=== PATIENT | male | born 1965 | race Caucasian/White ===

== ENCOUNTER 2017-01-15 05:50 | Inpatient (IN) | payer MEDICAID ==
[~2017-01-15] VITALS: Ht 195.6 cm; Wt 111.1 kg
[2017-01-15 07:03] LABS: CLARITY URINE CLEAR (CLEAR); COLOR URINE YELLOW (YELLOW); GLUCOSE URINE NEGATIVE (NEGATIVE); KETONES URINE NEGATIVE (NEGATIVE); LEUKOCYTE ESTERASE URINE NEGATIVE (NEGATIVE); NITRITE URINE NEGATIVE (NEGATIVE); OCCULT BLOOD URINE NEGATIVE (NEGATIVE); PH URINE 5.5 (4.5-8.0); PROTEIN URINE NEGATIVE (NEGATIVE); SPECIFIC GRAVITY URINE 1.019 (1.005-1.030); UROBILINOGEN URINE 0.2 E.U./dL (0.2-1.0)
[2017-01-15 07:03] LABS: CHLORIDE 106 mEq/L (98-107)
[2017-01-15 07:08] LABS: PARTIAL THROMBOPLASTIN TIME 26.1 sec (23.4-31.0)
[2017-01-15 07:12] LABS: CARBON DIOXIDE 27 mEq/L (21-32)
[2017-01-15 07:32] LABS: BASOPHILS % 0.5 % (0.0-2.0); EOSINOPHILS % 1.7 % (0.0-5.0); LYMPHOCYTES % 23.2 % (20.0-50.0); MEAN CORPUSCULAR HEMOGLOBIN 31.9 pg (28.0-32.0); MEAN CORPUSCULAR VOLUME 89.7 fL (80.0-94.0); MEAN PLATELET VOLUME 7.1 fl (7.4-10.4); MONOCYTES % 8.5 % (2.0-8.0); NEUTROPHILS % 66.1 % (40.0-76.0); PLATELET 219 x1000/uL (130-400); RED BLOOD CELL COUNT 4.68 mill/uL (4.7-6.1); RED CELL DISTRIBUTION WIDTH 13.2 % (11.6-14.6)
[2017-01-15] MEDS ORDERED: METHYLENE BLUE 50 MG/10 ML AMP IV ONE (08:04)
[2017-01-15] MEDS ORDERED: GENTAMICIN SULF 40MG/ML 2ML VIAL ONE (08:13)
[2017-01-15] MEDS ORDERED: EPINEPHRINE 1:1000 1 MG/ML AMP ONE (08:13)
[2017-01-15] MEDS ORDERED: NORMAL SALINE 0.9% 10 ML SYR ONE (08:14)
[2017-01-15] MEDS ORDERED: BUPIVACAINE/EPINEPHRINE/PF 0.25%/0.0005 30ML ONE (08:14)
[2017-01-15] MEDS ORDERED: BACITRACIN 50,000 UNITS/VIAL ONE (08:14)
[2017-01-15] MEDS ORDERED: LACTATED RINGERS 1,000 ML IV SCH (08:15)
[2017-01-15] MEDS ORDERED: MORPHINE SULFATE/PF 1MG/ML 10ML AMP ONE (08:15)
[2017-01-15] MEDS ORDERED: TRANEXAMIC ACID 1,000 MG in SODIUM CHLORIDE 0.9% 100 ML IV NR ×2 (08:30→11:30)
[2017-01-15] MEDS ORDERED: HYDR25TA PO (08:40)
[2017-01-15] MEDS ORDERED: ASPI-1159 PO (08:40)
[2017-01-15] MEDS ORDERED: AMLO10TA80 PO (08:40)
[2017-01-15] MEDS ORDERED: ATOR10TA69 PO (08:40)
[2017-01-15] MEDS ORDERED: IBUP-2030 PO (08:40)
[2017-01-15] MEDS ORDERED: LIDOCAINE HCL 1% 20ML VIAL (Pyxis) INJ ONE (08:55)
[2017-01-15] MEDS ORDERED: PROPOFOL 200MG/20ML VIAL IV ONE (08:55)
[2017-01-15] MEDS ORDERED: FENTANYL CITRATE/PF 50MCG/ML 2ML VIAL ONE (08:55)
[2017-01-15] MEDS ORDERED: CEFAZOLIN SODIUM 1000MG/VIAL ONE (08:55)
[2017-01-15] MEDS ORDERED: MEPERIDINE HCL/PF 25MG/ML CPJ IV PRN (09:15)
[2017-01-15] MEDS ORDERED: HYDROMORPHONE HCL/PF 2MG/ML CPJ IV PRN (09:15)
[2017-01-15] MEDS ORDERED: LABETALOL HCL 20MG/4ML CARPUJECT IV PRN (09:15)
[2017-01-15] MEDS ORDERED: ONDANSETRON HCL 4MG/2ML VIAL IV PRN ×2 (09:15→20:00)
[2017-01-15] MEDS ORDERED: HYDROMORPHONE HCL/PF 2MG/ML (OR) ONE ×2 (09:15→12:58)
[2017-01-15] MEDS ORDERED: EPHEDRINE SULFATE 50MG/ML VIAL ONE (09:19)
[2017-01-15] MEDS ORDERED: METOCLOPRAMIDE HCL 10MG/2ML VIAL ONE (10:07)
[2017-01-15] MEDS ORDERED: KETOROLAC 30MG/ML VIAL ONE (11:53)
[2017-01-15] MEDS ORDERED: DIPHENHYDRAMINE INJ IV PRN (13:30)
[2017-01-15] MEDS ORDERED: HYDROMORPHONE PCA 10MG/50ML IV PRN (13:30)
[2017-01-15] MEDS ORDERED: NALOXONE INJ IV PRN (13:30)
[2017-01-15] MEDS ORDERED: ONDANSETRON INJ IV PRN (13:30)
[2017-01-15 16:30] VITALS: BP 134/79
[2017-01-15 17:15] VITALS: BP 138/86
[2017-01-15 20:00] VITALS: BP 139/87
[2017-01-15] MEDS ORDERED: MAGNESIUM HYDROXIDE 400MG/5ML 30ML UDC PO PRN (20:00)
[2017-01-15] MEDS ORDERED: ZOLPIDEM TARTRATE 5MG TABLET PO PRN (20:30)
[2017-01-15] MEDS: CEFAZOLIN 2,000 MG in DEXT 5% WATER 100 ML IV SCH (20:31)
[2017-01-16] VITALS: BP 118/77
[2017-01-16 04:00] VITALS: BP 126/81
[2017-01-16] MEDS: CEFAZOLIN 2,000 MG in DEXT 5% WATER 100 ML IV SCH (04:33)
[2017-01-16 06:53] LABS: CARBON DIOXIDE 25 mEq/L (21-32); CHLORIDE 105 mEq/L (98-107)
[2017-01-16 07:04] LABS: BASOPHILS % 0.1 % (0.0-2.0); HEMATOCRIT. 30.3 % (42.0-52.0); HEMOGLOBIN. 10.7 g/dL (14.0-18.0); LYMPHOCYTES % 7.7 % (20.0-50.0); MEAN CORPUSCULAR HEMOGLOBIN 31.6 pg (28.0-32.0); MONOCYTES % 11.3 % (2.0-8.0); NEUTROPHILS % 80.9 % (40.0-76.0); PLATELET 169 x1000/uL (130-400); RED BLOOD CELL COUNT 3.37 mill/uL (4.7-6.1)
[2017-01-16 08:00] VITALS: BP 137/82
[2017-01-16] MEDS: DOCUSATE SODIUM 100MG CAPSULE PO SCH ×2 (08:55→17:08)
[2017-01-16] MEDS: FERROUS SULFATE 325MG TABLET PO SCH ×3 (08:55→17:08)
[2017-01-16] MEDS: ENOXAPARIN 30MG/0.3ML SYR SUBCUT SCH ×2 (08:55→21:37)
[2017-01-16] MEDS: HYDROCODONE/ACETAMINOPHEN 10/325MG TABLET PO PRN ×4 (08:56→21:37)
[2017-01-16 12:00] VITALS: BP 147/80
[2017-01-16 16:00] VITALS: BP_SYST 122; BP_SYST 151; BP_DIAS 75; BP_DIAS 89
[2017-01-16 20:00] VITALS: BP 127/73
[2017-01-16] MEDS: ACETAMINOPHEN 325MG TABLET PO PRN (23:26)
[2017-01-17] VITALS: BP 125/70
[2017-01-17 04:00] VITALS: BP 129/80
[2017-01-17] MEDS: ACETAMINOPHEN 325MG TABLET PO PRN (07:17)
[2017-01-17] MEDS: ENOXAPARIN 30MG/0.3ML SYR SUBCUT SCH (08:03)
[2017-01-17] MEDS: DOCUSATE SODIUM 100MG CAPSULE PO SCH ×2 (08:03→17:39)
[2017-01-17] MEDS: FERROUS SULFATE 325MG TABLET PO SCH ×3 (08:03→17:39)
[2017-01-17] MEDS: HYDROCODONE/ACETAMINOPHEN 10/325MG TABLET PO PRN ×2 (12:39→17:39)
[2017-01-17 13:38] LABS: BASOPHILS % 0.3 % (0.0-2.0); EOSINOPHILS % 0.2 % (0.0-5.0); HEMATOCRIT. 27.7 % (42.0-52.0); HEMOGLOBIN. 9.7 g/dL (14.0-18.0); MEAN CORPUSCULAR HEMOGLOBIN 31.4 pg (28.0-32.0); MEAN CORPUSCULAR VOLUME 90.1 fL (80.0-94.0); MEAN PLATELET VOLUME 6.8 fl (7.4-10.4); MONOCYTES % 11.6 % (2.0-8.0); NEUTROPHILS % 77.9 % (40.0-76.0); PLATELET 178 x1000/uL (130-400); RED BLOOD CELL COUNT 3.07 mill/uL (4.7-6.1); RED CELL DISTRIBUTION WIDTH 13.1 % (11.6-14.6)
[2017-01-17 13:59] LABS: CARBON DIOXIDE 28 mEq/L (21-32); CHLORIDE 100 mEq/L (98-107)
[2017-01-17] MEDS ORDERED: POTASSIUM CHLORIDE 20MEQ TABLET SR PO NR (15:30)
[2017-01-17 18:03] VITALS: BP 130/83
== END 2017-01-17 19:02 | disposition home health service (06) | DRG 302 ==
LOC: OR 05:50 → 6EST 05:51
PROVIDERS: ADMIT Internal Medicine; ATTEND Internal Medicine
PROC: 0SRC0J9 Replacement of Right Knee Joint with Synthetic Substitute, Cemented, Open Approach (ICD-10-PCS; principal; 2017-01-15 09:30)
DX: M17.11 Unilateral primary osteoarthritis, right knee (principal); E44.0 Moderate protein-calorie malnutrition; D62 Acute posthemorrhagic anemia; I10 Essential (primary) hypertension; E78.5 Hyperlipidemia, unspecified; E87.6 Hypokalemia; G89.29 Other chronic pain; M17.12 Unilateral primary osteoarthritis, left knee; M65.9 Synovitis and tenosynovitis, unspecified; F32.9 Major depressive disorder, single episode, unspecified
CPT/HCPCS: 36415; 73560; 80048; 80053; 81003; 85025; 85610; 85730; 86850; 86900; 86920; 88305; 88311; 93970; 97116; 97162; 97166; 97535; A4216; C1776; J0171; J0690; J1170; J1580; J1650; J1885; J2274; J2405; J2704; J2765; J3010; J3490; J7030; J7050; J7060; J7120; L1830; Q9968

== ENCOUNTER 2018-12-01 11:31 | Emergency (ER) | payer MEDICAID ==
[~2018-12-01] VITALS: Ht 180.3 cm; Wt 121.0 kg
[~2018-12-01 11:31] MED LIST: AMLO10TA80 PO; ASPI-1393 PO; ATOR10TA69 PO; HYDR25TA PO; IBUP-2030 PO; MULT-1116 PO; OMEG-118 PO
[2018-12-01 13:10] VITALS: BP 130/71
== END 2018-12-01 13:27 | disposition home or self-care (01) ==
LOC: ER 13:27
DX: G89.18 Other acute postprocedural pain (principal); M79.662 Pain in left lower leg
CPT/HCPCS: 73590; 99283

== ENCOUNTER 2018-12-08 10:52 | Emergency (ER) | payer MEDICAID ==
[~2018-12-08] VITALS: Ht 182.9 cm; Wt 120.0 kg
[2018-12-08 16:26] VITALS: BP 125/72
== END 2018-12-08 16:29 | disposition home or self-care (01) ==
LOC: ER 10:52
DX: T84.117A Breakdown (mechanical) of internal fixation device of bone of left lower leg, initial encounter (principal); M96.672 Fracture of tibia or fibula following insertion of orthopedic implant, joint prosthesis, or bone plate, left leg; I10 Essential (primary) hypertension; Y93.89 Activity, other specified; Y79.3 Surgical instruments, materials and orthopedic devices (including sutures) associated with adverse incidents; Y92.89 Other specified places as the place of occurrence of the external cause
CPT/HCPCS: 29505; 73700; 99284

== ENCOUNTER 2019-02-24 09:29 | Inpatient (IN) | payer MEDICAID ==
[~2019-02-24] VITALS: Ht 182.9 cm; Wt 125.6 kg
[2019-02-24] MEDS ORDERED: LACTATED RINGERS 1,000 ML IV SCH (09:30)
[2019-02-24 14:10] LABS: CLARITY URINE CLEAR (CLEAR); COLOR URINE YELLOW (YELLOW); KETONES URINE NEGATIVE (NEGATIVE); LEUKOCYTE ESTERASE URINE NEGATIVE (NEGATIVE); NITRITE URINE NEGATIVE (NEGATIVE); OCCULT BLOOD URINE NEGATIVE (NEGATIVE); PROTEIN URINE NEGATIVE (NEGATIVE); SPECIFIC GRAVITY URINE 1.016 (1.005-1.030); UROBILINOGEN URINE 0.2 E.U./dL (0.2-1.0)
[2019-02-24] MEDS ORDERED: BUPIVACAINE HCL/EPINEPHRINE 0.25%/0.0005 50ML ONE ×2 (15:56→17:50)
[2019-02-24] MEDS ORDERED: MORPHINE SULFATE/PF 1MG/ML 10ML AMP ONE (15:56)
[2019-02-24] MEDS ORDERED: VANCOMYCIN HCL 1 GM/VIAL ONE (15:57)
[2019-02-24] MEDS ORDERED: EPINEPHRINE 1:1000 1 MG/ML AMP ONE (15:57)
[2019-02-24] MEDS ORDERED: GENTAMICIN SULF 40MG/ML 2ML VIAL ONE (15:58)
[2019-02-24] MEDS ORDERED: BACITRACIN 50,000 UNITS/VIAL ONE (15:58)
[2019-02-24] MEDS ORDERED: BUPIVACAINE HCL/DEXTROSE/PF 0.75% 2ML AMP INJ ONE (16:01)
[2019-02-24] MEDS ORDERED: ROPIVACAINE HCL 10MG/ML 20 ML VIAL EPI ONE (16:02)
[2019-02-24] MEDS ORDERED: CEFAZOLIN SODIUM 1000MG/VIAL ONE (16:12)
[2019-02-24] MEDS ORDERED: FENTANYL CITRATE/PF 50MCG/ML 2ML VIAL ONE ×3 (16:12→19:32)
[2019-02-24] MEDS ORDERED: NEOSTIGMINE METHYLSULFATE 1MG/ML 10 ML VIAL ONE (16:12)
[2019-02-24] MEDS ORDERED: PROPOFOL 200MG/20ML VIAL IV ONE (16:12)
[2019-02-24] MEDS ORDERED: GLYCOPYRROLATE 0.2 MG/ML 2ML VIAL ONE (16:12)
[2019-02-24] MEDS ORDERED: MIDAZOLAM HCL 2 MG/2 ML VIAL ONE (16:12)
[2019-02-24] MEDS ORDERED: SODIUM CHLORIDE 0.9% 10ML VIAL ONE (16:12)
[2019-02-24] MEDS ORDERED: SUCCINYLCHOLINE CHLORIDE 200MG/10ML IV ONE (16:12)
[2019-02-24] MEDS ORDERED: ROCURONIUM BROMIDE 10MG/ML VIAL 5ML IV ONE ×2 (16:12→17:01)
[2019-02-24] MEDS ORDERED: METOCLOPRAMIDE HCL 10MG/2ML VIAL ONE (16:13)
[2019-02-24] MEDS ORDERED: PHENYLEPHRINE HCL 10 MG/ML 1ML (IV VIAL) IV ONE (16:13)
[2019-02-24] MEDS ORDERED: DEXAMETHASONE 4MG/ML 1ML VIAL ONE (16:13)
[2019-02-24] MEDS ORDERED: ONDANSETRON HCL 4MG/2ML INJ ONE (16:13)
[2019-02-24] MEDS ORDERED: EPHEDRINE SULFATE 50MG/ML VIAL ONE (16:13)
[2019-02-24] MEDS ORDERED: TRANEXAMIC ACID 1,000 MG in SODIUM CHLORIDE 0.9% 100 ML IV NR (17:00)
[2019-02-24] MEDS ORDERED: METHYLENE BLUE 50 MG/10 ML AMP IV ONE (17:03)
[2019-02-24] MEDS ORDERED: HYDROMORPHONE HCL/PF 2MG/ML CPJ IV PRN (19:45)
[2019-02-24] MEDS ORDERED: MORPHINE SULFATE 2 MG/ML CPJ (NOT FOR IM USE) IV PRN ×3 (19:45→21:30)
[2019-02-24] MEDS ORDERED: MEPERIDINE HCL/PF 25MG/ML CPJ IV PRN (19:45)
[2019-02-24] MEDS ORDERED: ONDANSETRON HCL 4MG/2ML INJ IV PRN ×3 (19:45→23:45)
[2019-02-24] MEDS ORDERED: SODIUM CHLORIDE 0.9% 1,000 ML IV ONE (21:00)
[2019-02-24] MEDS ORDERED: HYDROCODONE/ACETAMINOPHEN 10/325MG TABLET PO PRN (21:15)
[2019-02-24] MEDS ORDERED: ACETAMINOPHEN 325MG TABLET PO PRN (21:15)
[2019-02-24] MEDS ORDERED: MAGNESIUM HYDROXIDE 400MG/5ML 30ML UDC PO PRN (21:15)
[2019-02-24] MEDS ORDERED: ZOLPIDEM TARTRATE 5MG TABLET PO PRN (21:15)
[2019-02-24] MEDS: MEPERIDINE HCL/PF 25MG/ML CPJ IV PRN ×2 (21:31→22:57)
[2019-02-24] MEDS ORDERED: HYDROMORPHONE PCA 10MG/50ML IV PRN (22:12)
[2019-02-24] MEDS ORDERED: DIPHENHYDRAMINE INJ IV PRN (22:15)
[2019-02-24] MEDS ORDERED: NALOXONE INJ IV PRN (22:15)
[2019-02-24] MEDS ORDERED: ONDANSETRON INJ IV PRN (22:15)
[2019-02-24] MEDS ORDERED: LABETALOL 5MG/ML SYR 20 MG/4 ML SYRINGE IV ONE (22:15)
[2019-02-25 01:39] VITALS: BP 117/73
[2019-02-25 04:00] VITALS: BP 102/58
[2019-02-25] MEDS: CEFAZOLIN 2,000 MG in DEXT 5% WATER 100 ML IV SCH ×2 (05:52→14:59)
[2019-02-25 06:17] LABS: HEMATOCRIT. 35.7 % (42.0-52.0); HEMOGLOBIN. 12.4 g/dL (14.0-18.0); MEAN CORPUSCULAR HEMOGLOBIN 30.4 pg (28.0-32.0); MEAN CORPUSCULAR VOLUME 87.8 fL (80.0-94.0); MEAN PLATELET VOLUME 7.1 fl (7.4-10.4); PLATELET 237 x1000/uL (130-400); RED BLOOD CELL COUNT 4.07 mill/uL (4.7-6.1); RED CELL DISTRIBUTION WIDTH 14.3 % (11.6-14.6)
[2019-02-25 06:20] LABS: CHLORIDE 105 mEq/L (98-107)
[2019-02-25 08:00] VITALS: BP 123/78
[2019-02-25] MEDS ORDERED: DEXTROSE 50% WATER 50ML SYRINGE IV PRN (09:15)
[2019-02-25] MEDS: ENOXAPARIN 30MG/0.3ML SYR SUBCUT SCH ×2 (09:38→20:34)
[2019-02-25] MEDS: DOCUSATE SODIUM 100MG CAPSULE PO SCH ×2 (09:38→16:53)
[2019-02-25] MEDS: CELECOXIB 200MG CAPSULE PO SCH ×2 (09:38→16:53)
[2019-02-25 12:00] VITALS: BP 126/63
[2019-02-25] MEDS: INSULIN LISPRO 100 UNITS/ML SUBCUT SCH ×3 (12:01→20:34)
[2019-02-25] MEDS: BLOOD SUGAR DIAGNOSTIC STRIP TEST SCH ×3 (12:01→20:34)
[2019-02-25 13:48] LABS: PLATELET ESTIMATE NORMAL
[2019-02-25 16:00] VITALS: BP 108/63
[2019-02-25] MEDS: HYDROCODONE/ACETAMINOPHEN 10/325MG TABLET PO PRN ×2 (16:53→23:04)
[2019-02-25 20:00] VITALS: BP 107/58
[2019-02-26] VITALS: BP 114/50
[2019-02-26 04:00] VITALS: BP 116/58
[2019-02-26] MEDS: HYDROCODONE/ACETAMINOPHEN 10/325MG TABLET PO PRN (05:04)
[2019-02-26] MEDS: BLOOD SUGAR DIAGNOSTIC STRIP TEST SCH ×2 (06:32→12:31)
[2019-02-26] MEDS: INSULIN LISPRO 100 UNITS/ML SUBCUT SCH ×2 (07:50→12:50)
[2019-02-26 08:00] VITALS: BP 132/72
[2019-02-26] MEDS: DOCUSATE SODIUM 100MG CAPSULE PO SCH (08:51)
[2019-02-26] MEDS: CELECOXIB 200MG CAPSULE PO SCH (08:51)
[2019-02-26] MEDS: ENOXAPARIN 30MG/0.3ML SYR SUBCUT SCH (08:51)
[2019-02-26 10:13] VITALS: BP 132/72
[2019-02-26 12:00] VITALS: BP 122/74
[2019-02-26 16:00] VITALS: BP 150/84
== END 2019-02-26 16:55 | disposition home or self-care (01) | DRG 302 ==
LOC: OR 09:29 → 6EST 22:21 → 6WST 02-25 01:59
PROVIDERS: ADMIT Orthopaedic Surgery; ATTEND Orthopaedic Surgery
PROC: 0QSH06Z Reposition Left Tibia with Intramedullary Internal Fixation Device, Open Approach (ICD-10-PCS; principal; 2019-02-24)
PROC: 0SRD0J9 Replacement of Left Knee Joint with Synthetic Substitute, Cemented, Open Approach (ICD-10-PCS; 2019-02-24)
PROC: BW1C1ZZ Fluoroscopy of Lower Extremity using Low Osmolar Contrast (ICD-10-PCS; 2019-02-24)
DX: M17.12 Unilateral primary osteoarthritis, left knee (principal); E83.51 Hypocalcemia; D64.9 Anemia, unspecified; S82.202K Unspecified fracture of shaft of left tibia, subsequent encounter for closed fracture with nonunion; I10 Essential (primary) hypertension; Z96.651 Presence of right artificial knee joint; D72.829 Elevated white blood cell count, unspecified; F32.9 Major depressive disorder, single episode, unspecified; M65.88 Other synovitis and tenosynovitis, other site; M21.262 Flexion deformity, left knee; X58.XXXD Exposure to other specified factors, subsequent encounter; G89.29 Other chronic pain; K59.00 Constipation, unspecified; R73.9 Hyperglycemia, unspecified; Z85.828 Personal history of other malignant neoplasm of skin
CPT/HCPCS: 36415; 73560; 76000; 80048; 81003; 82962; 83036; 86850; 86900; 88305; 88311; 97110; 97116; 97162; 97166; 97530; C1713; C1776; J0171; J0330; J0690; J1100; J1170; J1580; J1650; J2175; J2250; J2270; J2274; J2370; J2405; J2704; J2710; J2765; J2795; J3010; J3370; J3490; J7050; J7060; L1830; Q9968